=== PATIENT | female | born 1985 | race Caucasian/White ===

== ENCOUNTER 2017-08-29 16:12 | Emergency (ER) | payer OTHER ==
[~2017-08-29] VITALS: Ht 157.5 cm; Wt 57.6 kg
[~2017-08-29 16:12] MED LIST: AMBIEN 10 MG TA10 MG; ASPIRIN EC325 M1; BENTYL20 MG PO; CIPRO250 M1 PO; PERCOCET 5-3251 EACH PO; PYRIDIUM200 MG PO; TOVIAZ4 M1; ULTRACET TABLE1 EACH PO; ZOFRAN ODT4 MG PO
[2017-08-29] MEDS ORDERED: NORCO 5-325 TA1 EAC1 PO (19:37)
[2017-08-29 19:58] VITALS: BP 147/95
== END 2017-08-29 19:58 | disposition home or self-care (01) ==
LOC: M.ERS 16:12
DX: S32.028A Other fracture of second lumbar vertebra, initial encounter for closed fracture (principal); S32.048A Other fracture of fourth lumbar vertebra, initial encounter for closed fracture; S32.058A Other fracture of fifth lumbar vertebra, initial encounter for closed fracture; I10 Essential (primary) hypertension; Z88.7 Allergy status to serum and vaccine; Z88.5 Allergy status to narcotic agent; W18.39XA Other fall on same level, initial encounter; Y93.89 Activity, other specified; Y92.89 Other specified places as the place of occurrence of the external cause; Y99.8 Other external cause status

== ENCOUNTER 2018-05-23 15:54 | Emergency (ER) | payer OTHER ==
[~2018-05-23] VITALS: Ht 154.9 cm; Wt 54.4 kg
[~2018-05-23 15:54] MED LIST changes: +NORCO 5-325 TA1 EAC1 PO
[2018-05-23] MEDS ORDERED: LOPERAMIDE 2 MG2 M1 PO (16:17)
[2018-05-23] MEDS ORDERED: GAS-X125 MG PO (16:17)
[2018-05-23 16:35] LABS: HEMATOCRIT 44.6 % (37.0-47.0); HEMOGLOBIN 15.5 gm/dL (12.0-15.0); MCH 32.6 pg (26.0-34.0); MCHC 34.7 g/dL (28.0-37.0); MCV 93.9 fL (80.0-100.0); MPV 7.7 fl. (7.2-11.1); NUCLEATED RBCS 0 /100WBC; PLATELET COUNT* 229 thou/uL (150-400); RBC 4.75 mil/uL (4.20-5.00); RDW-CV 12.9 % (10.5-14.5)
[2018-05-23 16:37] LABS: URINE BILIRUBIN NEGATIVE (Negative); URINE BLOOD NEGATIVE (Negative); URINE CLARITY CLEAR; URINE COLOR YELLOW; URINE GLUCOSE-RANDOM NEGATIVE (Negative); URINE KETONES 1+ (Negative); URINE LEUKOCYTES-REFLEX NEGATIVE (Negative); URINE NITRITE-REFLEX NEGATIVE (Negative); URINE PROTEIN NEGATIVE (Negative); URINE UROBILINOGEN 0.2 E.U./dl (0.2-1.0)
[2018-05-23 16:51] LABS: CALCIUM 8.5 mg/dL (8.5-10.1); CREATININE 0.8 mg/dL (0.6-1.3); POTASSIUM 3.4 mmol/L (3.5-5.1)
[2018-05-23 16:55] LABS: ALBUMIN 4.1 g/dL (3.4-5.0); TOTAL BILIRUBIN 1.1 mg/dL (<0.1-1.0); TOTAL PROTEIN 8.1 g/dL (6.4-8.2)
[2018-05-23 17:05] LABS: ABSOLUTE MONOCYTES 0.4 thou/uL (0.0-1.2); ABSOLUTE NEUTROPHILS 10.6 thou/uL (1.6-8.1)
[2018-05-23 17:06] LABS: PLATELET ESTIMATE ADEQUATE
[2018-05-23] MEDS ORDERED: BENTYL 20 MG TA20 M1 PO (18:56)
[2018-05-23] MEDS ORDERED: ONDANSETRON HCL4 M2 PO (18:56)
[2018-05-23 19:11] VITALS: BP 94/57
== END 2018-05-23 19:12 | disposition home or self-care (01) ==
LOC: M.ERS 15:54
PROVIDERS: Family Medicine
DX: K52.9 Noninfective gastroenteritis and colitis, unspecified (principal); R74.8 Abnormal levels of other serum enzymes; I10 Essential (primary) hypertension; Z88.7 Allergy status to serum and vaccine; Z88.5 Allergy status to narcotic agent; Z88.8 Allergy status to other drugs, medicaments and biological substances; Z98.890 Other specified postprocedural states; Z90.49 Acquired absence of other specified parts of digestive tract

== ENCOUNTER 2019-07-21 17:01 | Emergency (ER) | payer OTHER ==
[~2019-07-21] VITALS: Ht 154.9 cm; Wt 54.9 kg
[~2019-07-21 17:01] MED LIST changes: +BENTYL 20 MG TA20 M1 PO; +GAS-X125 MG PO; +LOPERAMIDE 2 MG2 M1 PO; +ONDANSETRON HCL4 M2 PO
[2019-07-21 18:08] LABS: URINE BILIRUBIN NEGATIVE (Negative); URINE BLOOD NEGATIVE (Negative); URINE CLARITY CLEAR; URINE COLOR YELLOW; URINE GLUCOSE-RANDOM NEGATIVE (Negative); URINE LEUKOCYTES-REFLEX NEGATIVE (Negative); URINE NITRITE-REFLEX NEGATIVE (Negative); URINE PROTEIN NEGATIVE (Negative); URINE SPECIFIC GRAVITY 1.025 (1.005-1.030); URINE UROBILINOGEN 0.2 E.U./dl (0.2-1.0)
[2019-07-21 18:09] LABS: URINE KETONES 3+ (Negative)
[2019-07-21 18:41] LABS: ABSOLUTE BASOPHILS 0.1 thou/uL (0.0-0.2); ABSOLUTE LYMPHOCYTES 1.4 thou/uL (0.8-5.3); ABSOLUTE MONOCYTES 0.7 thou/uL (0.0-1.2); ABSOLUTE NEUTROPHILS 5.4 thou/uL (1.6-8.1); BASOPHILS 0.8 %; EOSINOPHILS 0.5 %; HEMATOCRIT 44.8 % (37.0-47.0); HEMOGLOBIN 15.4 gm/dL (12.0-15.0); LYMPHOCYTES 18.4 %; MCH 32.1 pg (26.0-34.0); MCHC 34.3 g/dL (28.0-37.0); MCV 93.5 fL (80.0-100.0); MONOCYTES 9.5 %; MPV 7.8 fl. (7.2-11.1); NUCLEATED RBCS 0 /100WBC; PLATELET COUNT* 257 thou/uL (150-400); POLYS 70.8 %; RBC 4.79 mil/uL (4.20-5.00); RDW-CV 12.5 % (10.5-14.5); WBC 7.6 thou/uL (4.0-11.0)
[2019-07-21 18:59] LABS: CREATININE 0.6 mg/dL (0.6-1.3); POTASSIUM 3.4 mmol/L (3.5-5.1)
[2019-07-21 19:03] LABS: ALBUMIN 4.4 g/dL (3.4-5.0); TOTAL BILIRUBIN 0.4 mg/dL (<0.1-1.0); TOTAL PROTEIN 8.4 g/dL (6.4-8.2)
[2019-07-21] MEDS ORDERED: ZOFRAN ODT4 MG PO (22:03)
[2019-07-21] MEDS ORDERED: HYDROCODON-ACE1 EAC7 PO (22:03)
[2019-07-21 22:15] VITALS: BP 130/80
== END 2019-07-21 22:15 | disposition home or self-care (01) ==
LOC: M.ERS 17:01
PROVIDERS: Emergency Medicine Emergency Medical Services; Nurse Practitioner Family
DX: R10.31 Right lower quadrant pain (principal); I10 Essential (primary) hypertension; Z98.890 Other specified postprocedural states; Z88.5 Allergy status to narcotic agent; Z88.8 Allergy status to other drugs, medicaments and biological substances

== ENCOUNTER 2021-05-20 11:43 | Emergency (ER) | payer OTHER ==
[~2021-05-20] VITALS: Ht 154.9 cm; Wt 52.6 kg
[~2021-05-20 11:43] MED LIST changes: +HYDROCODON-ACE1 EAC7 PO
[2021-05-20] MEDS ORDERED: METHYLPREDNISOL32 MG PO (11:55)
[2021-05-20 13:47] VITALS: BP 127/86
== END 2021-05-20 13:47 | disposition home or self-care (01) ==
LOC: M.ERS 11:43
DX: U07.1 COVID-19 (principal); I10 Essential (primary) hypertension; Z90.49 Acquired absence of other specified parts of digestive tract; Z79.899 Other long term (current) drug therapy; Z88.5 Allergy status to narcotic agent; Z88.8 Allergy status to other drugs, medicaments and biological substances; Z88.7 Allergy status to serum and vaccine